=== PATIENT | male | born 1955 | race Caucasian/White ===

== ENCOUNTER 2022-03-01 10:19 | Day surgery (SDC) | payer MEDICARE ==
[~2022-03-01 10:19] MED LIST: ALPRAZolam 0.25 MG TAB PO PRN; ALPRAZolam 0.5 MG TAB PO PRN; ASPIRIN 325 MG TAB PO STA; NITROGLYCERIN SL TABS 0.4 MG TAB SUBLINGUAL PRN; SODIUM CHLORIDE 0.9% 1,000 ML in EMPTY BAG 1 BAG IV SCH
[2022-03-01 10:42] VITALS: TEMP 97.8
[2022-03-01 10:57] LABS: Basophils % (A) 1 %; Eosinophils # (A) 0.2 k/uL (0-0.7); Eosinophils % (A) 4 %; HCT 42.2 % (39.0-53.0); HGB 13.8 gm/dL (13.0-17.5); Lymphocytes # (A) 1.3 k/uL (1.0-4.8); Lymphocytes % (A) 26 %; MCH 31.1 pg (25.0-35.0); MCHC 32.7 g/dL (31.0-37.0); MCV 95.1 fL (80.0-100.0); Mean Platelet Volume 7.3; Monocytes # (A) 0.4 k/uL (0-1.0); Monocytes % (A) 8 %; Neutrophils # (A) 2.8 k/uL (1.3-7.7); Neutrophils % (A) 58 %; Platelet Count 301 k/uL (150-450); RBC 4.44 m/uL (4.30-5.90); RDW 15.6 % (11.5-15.5); WBC 4.9 k/uL (3.8-10.6)
[2022-03-01 11:17] LABS: Calcium 9.8 mg/dL (8.4-10.2); Potassium 4.7 mmol/L (3.5-5.1)
[2022-03-01] MEDS ORDERED: VERAPAMIL 2.5 MG/ML 2 ML AMP ONE (12:09)
[2022-03-01] MEDS ORDERED: fentaNYL (PF) 50 MCG/ML 2 ML AMP ONE (12:10)
[2022-03-01] MEDS ORDERED: HEPARIN SODIUM 1,000 UN/ML (10ML VL) ONE (12:23)
[2022-03-01] MEDS ORDERED: fentaNYL (PF) 50 MCG/ML 2 ML AMP IV ONE (12:40)
[2022-03-01] MEDS ORDERED: LIDOCAINE 1% INJ 10MG/ML (5 ML VIAL-PF) SQ ONE (12:45)
[2022-03-01] MEDS ORDERED: VERAPAMIL SYRINGE (5 MG/10 ML) INTRAARTER ONE (12:46)
[2022-03-01] MEDS ORDERED: MIDAZOLAM 2 MG/2 ML VIAL IV ONE (12:47)
[2022-03-01] MEDS: HEPARIN SODIUM 1,000 UN/ML (10ML VL) IV ONE ×2 (12:55→13:00)
[2022-03-01] MEDS ORDERED: NITROGLYCERIN 1000MCG/10ML SYRINGE INTRACORON ONE (13:09)
[2022-03-01] MEDS ORDERED: IOPAMIDOL-370 125ML BTL INJ ONE (13:15)
[2022-03-01] MEDS ORDERED: RX INFO: IV CONTRAST WAS GIVEN 1 EACH MISC MISCELLANE PRN (13:30)
[2022-03-01] MEDS ORDERED: SODIUM CHLORIDE 0.9% 1,000 ML IV SCH (13:30)
--- NOTE | 2022-03-01 13:39 | P.CARDCATH ---
Date of Procedure: 03/01/22 Description of Procedure: Cardiac Catheterization: The patient is a 66-year-old male, followed by Dr. Zazueta with a history of hypertension, hyperlipidemia and ascending aortic aneurysm has been complaining of fatigue and dyspnea and had an abnormal MPI. Recommendations were made regarding cardiac catheterization, the risks and the complications were discussed with the patient who is in full understanding and agreement. Procedure Description: Patient was brought to slab installer in fasting semi-sedated state after receiving Fentanyl and Benadryl achieiving moderate conscious sedated state. Using Xylocaine Anesthesia and Seldinger technique, a 6-American sheath was introduced in the right radial artery . Subsequently, selective coronary angiography was performed using a 5-American 4 bend right Jess catheter and sheath 3.5 left Jess catheter. Multiple views of the coronary artery including hemiaxial views were obtained. The 5-American Pigtail catheter was used to cross the aortic valve and LVEDP was calculated. Following that a 6-American CLS 3.5 guiding catheter was introduced and the left main was cannulated, a Doppler flow wire was introduced in the distal LAD and IFR was calculated, pullback calculation were done. Following that, catheter and sheath were removed. Hemostasis was obtained with deployment of TR band . There was no immediate complication. Patient was returned to room in stable condition. Of note, the patient received a total of 5000 units of intravenous heparin as well as intra-arterial verapamil. Findings: Fluoroscopy: There is calcification involving the LAD Left main: This is a large size vessel, bifurcating into LAD and left circumflex, left main has no high-grade stenosis LAD: This is a large size vessel, reaching to the apex, calcified in the midsegment, giving rise to a moderately size agonal branch in the mid segment. The mid LAD has 2 tandem lesions of 50-60%, the rest of the vessel has no high- grade stenosis Left circumflex: This is a dominant vessel, large in caliber giving rise to 2 large obtuse marginal branch, the left circumflex has no evidence of high-grade stenosis. RCA: This is a nondominant vessel, small in caliber, the proximal RCA has an eccentric 70-80% stenosis Left Ventriculogram: Not performed Hemodynamics: There was no gradient across the aortic valve, LVEDP was 48 mmHg Conclusion: 1. Calcified LAD with moderate disease and normal IFR measurement at 0.92 2. Significant disease in the proximal small nondominant RCA 3. Left dominance 4. Normal EDP Recommendations: I have recommended to maximize medical therapy. The LAD lesion is not significant. The RCA is small and nondominant. The findings and the recommen dations were discussed with the patient and the family and they were in full understanding and agreement. Duration of sedation is 33 minutes.
[2022-03-01 14:52] VITALS: PULSE 56; RESP 14
[2022-03-01 15:11] VITALS: BP 119/65
[2022-03-02] MEDS ORDERED: PANTOPRAZOLE 40 MG TABLET PO SCH (07:30)
[2022-03-02] MEDS ORDERED: lisinopriL 10 MG TAB PO SCH (09:00)
[2022-03-02] MEDS ORDERED: TAMSULOSIN 0.4 MG CAP.ER.24H PO SCH (09:00)
[2022-03-02] MEDS ORDERED: ASPIRIN 81 MG PO SCH (09:00)
[2022-03-02] MEDS ORDERED: ATORVASTATIN 10 MG TAB PO SCH (09:00)
== END 2022-03-01 16:45 | disposition home or self-care (01) ==
LOC: CATHCVL 10:19
PROVIDERS: ATTEND Internal Medicine Interventional Cardiology
DX: I25.10 Atherosclerotic heart disease of native coronary artery without angina pectoris (principal); I25.84 Coronary atherosclerosis due to calcified coronary lesion; I10 Essential (primary) hypertension; I71.2 Thoracic aortic aneurysm, without rupture; Z87.891 Personal history of nicotine dependence; E78.00 Pure hypercholesterolemia, unspecified; R94.39 Abnormal result of other cardiovascular function study; Z82.49 Family history of ischemic heart disease and other diseases of the circulatory system; E78.5 Hyperlipidemia, unspecified; Z83.438 Family history of other disorder of lipoprotein metabolism and other lipidemia; Z79.82 Long term (current) use of aspirin; Z79.899 Other long term (current) drug therapy
CPT/HCPCS: 93458; 93799; 80048; 85025; 87635; C1769 ×4; C1887; C1894; J2250; J2001; J3010; J1644; Q9967

== ENCOUNTER 2022-06-29 09:12 | Day surgery (SDC) | payer MEDICARE ==
[2022-06-27 11:53] VITALS: BMI 23.1
[~2022-06-29 09:12] MED LIST changes: -ALPRAZolam 0.25 MG TAB PO PRN; -ALPRAZolam 0.5 MG TAB PO PRN; -ASPIRIN 325 MG TAB PO STA; +LACTATED RINGERS 1,000 ML IV SCH; -NITROGLYCERIN SL TABS 0.4 MG TAB SUBLINGUAL PRN; -SODIUM CHLORIDE 0.9% 1,000 ML in EMPTY BAG 1 BAG IV SCH
[2022-06-29 09:54] VITALS: RESP 16; TEMP 97.8
[2022-06-29] MEDS ORDERED: LIDOCAINE 1% (10MG/ML) FOR IV START INTRADERMA ONE (09:59)
[2022-06-29] MEDS ORDERED: PROPOFOL 10 MG/ML 20 ML VIAL IV ONE (10:40)
--- NOTE | 2022-06-29 11:13 | P.PCN ---
Date of Procedure: 06/29/22 Procedure(s) Performed: BRIEF HISTORY: Patient is a 67-year-old pleasant white male scheduled for an elective colonoscopy as a part of evaluation of iron deficiency anemia. He was admitted to the hospital in February of this year with a hemoglobin of 6.6 g/dL requiring a repeat visit and sedation. An upper endoscopy done at that time that revealed hiatal hernia and Chowdary's esophagus. He has no prior history of colonoscopy. PROCEDURE PERFORMED: Colonoscopy with snare polypectomy. PREOPERATIVE DIAGNOSIS: Patient anemia. IV sedation per Anesthesia. PROCEDURE: After informed consent was obtained, the patient, was brought into the endoscopy unit. IV sedation was administered by Anesthesia under continuous monitoring. Digital rectal examination was normal. Initially the Olympus CF-160 flexible video colonoscope was then inserted in the rectum, gradually advanced into the cecum without any difficulty. Careful examination was performed as the scope was gradually being withdrawn. Ileocecal valve and the appendiceal orifice were visualized and appeared normal. Prep was excellent. Mucosa of the cecum, ascending colon, appeared normal. In the hepatic flexure there was a 1 cm polyp removed by snare polypectomy. Rest of the transverse colon, descending colon, sigmoid colon, and rectum appeared normal. Scattered sigmoid diverticulosis seen. Retroflexion was performed in the rectum and no lesions were seen. The patient tolerated the procedure well. IMPRESSION: 1 cm hepatic flexure polyp status post polypectomy Scattered sigmoid diverticulosis. RECOMMENDATIONS: Findings of this examination were discussed with the patient as his family. He was advised to follow with the biopsy results. If the biopsy results adenoma he can have a repeat colonoscopy in 3 years.
[2022-06-29 11:26] VITALS: BP 149/94; PULSE 68
== END 2022-06-29 11:30 | disposition home or self-care (01) ==
LOC: ORWHC2ENDO 09:12
PROVIDERS: ATTEND Internal Medicine Gastroenterology
DX: D12.3 Benign neoplasm of transverse colon (principal); K57.30 Diverticulosis of large intestine without perforation or abscess without bleeding; D50.9 Iron deficiency anemia, unspecified; I25.10 Atherosclerotic heart disease of native coronary artery without angina pectoris; I10 Essential (primary) hypertension; E78.5 Hyperlipidemia, unspecified; N40.0 Benign prostatic hyperplasia without lower urinary tract symptoms; Z87.19 Personal history of other diseases of the digestive system; Z79.899 Other long term (current) drug therapy; Z79.82 Long term (current) use of aspirin
CPT/HCPCS: 88305; 45385; J2704

== ENCOUNTER 2023-07-05 07:19 | Day surgery (SDC) | payer MEDICARE ==
[2023-07-03 15:52] VITALS: BMI 23.6
[2023-07-05] MEDS ORDERED: LACTATED RINGERS 1,000 ML IV SCH (07:39)
[2023-07-05 08:04] VITALS: TEMP 98.1
[2023-07-05] MEDS ORDERED: PROPOFOL 10 MG/ML 20 ML VIAL IV ONE (08:10)
[2023-07-05] MEDS ORDERED: LIDOCAINE 1% INJ 10MG/ML (20 ML MDV) ONE (08:10)
--- NOTE | 2023-07-05 08:21 | P.PCN ---
Date of Procedure: 07/05/23 Procedure(s) Performed: BRIEF HISTORY: Patient is a 68-year-old, pleasant, male scheduled for an upper endoscopy as a part of evaluation of GERD and Chowdary's esophagus. He is presently on Protonix 40 mg daily. PROCEDURE PERFORMED: Esophagogastroduodenoscopy with biopsy. PREOPERATIVE DIAGNOSIS: GERD/Chowdary's esophagus. IV sedation per anesthesia. PROCEDURE: After informed consent was obtained, the patient was brought into the endoscopy unit. IV sedation was administered by Anesthesia under continuous monitoring. Initially the Olympus GIF-140 video endoscope was inserted into the mouth. Esophagus intubated without any difficulty. It was gradually advanced into the stomach and duodenum and carefully examined. The bulb and the second part of the duodenum appeared normal. The scope at this time was withdrawn to the stomach, adequately insufflated with air, and upon careful examination, muc susan of the antrum, body, cardia and the fundus appeared normal. The scope was then withdrawn into the esophagus. Moderate size hiatal hernia noted. The GE junction was located at 36 cm from the incisors. Long segment of Chowdary's esophagus extending from 34-36 cm from the incisors and multiple biopsies were done from this area. There were linear erosions noted proximal to the Chowdary's esophagus consistent with LA grade B reflux esophagitis. The rest of the esophagus appeared normal and the patient tolerated the procedure well. IMPRESSION: 1. 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 2. Moderate size hiatal hernia 3. Linear erosions in the distal esophagus consistent with LA grade B reflux esophagitis. RECOMMENDATIONS: The findings of this examination were discussed with the patient as well as his family. He was advised to follow with the biopsy results. He will continue with Protonix 40 mg twice daily for 3 months and then advised to decrease to once daily and follow antrum reflux measures. If the biopsy reveals Chowdary's esophagus with no dysplasia, he can have a repeat upper endoscopy in 3 years.
[2023-07-05 08:57] VITALS: BP 133/82; PULSE 72; RESP 16
== END 2023-07-05 09:17 | disposition home or self-care (01) ==
LOC: ORWHC2ENDO 07:19
PROVIDERS: ATTEND Internal Medicine Gastroenterology
DX: K22.70 Barrett's esophagus without dysplasia (principal); K44.9 Diaphragmatic hernia without obstruction or gangrene; K21.9 Gastro-esophageal reflux disease without esophagitis; Z79.899 Other long term (current) drug therapy
CPT/HCPCS: 88305; 43239; J2001; J2704